=== PATIENT | female | born 1990 | race American Indian/Alaskan Native ===

== ENCOUNTER 2018-05-12 22:32 | Emergency (ER) | payer SELFPAY ==
--- NOTE | 2018-05-13 00:41 | XRay Report ---
FINAL REPORT EXAM: XR NECK SOFT TISSUE HISTORY: Foreign body in throat. Patient stated that she feels like an apple core x1 week ago is st uck in her throat. SALMA TECHNIQUE: AP and lateral views of the neck with soft tissue detail. PRIORS: None. FINDINGS: There is no soft tissue swelling. There is a small prevertebral calcific opacity in the area of the p iriform sinuses most likely calcification in the arytenoid cartilage. There is no strong evidence of foreign body. The airway appears normal. The visualized bones of the skull, face and cervical spine a ppear normal. IMPRESSION: No evidence of foreign body. Consider further evaluation with barium swallow and esophagram
[2018-05-13] MEDS ORDERED: MOTRIN PO ONE (01:21)
[2018-05-13] MEDS ORDERED: LIDOCAINE VISCOUS 2% PO ONE (01:21)
--- NOTE | 2018-05-13 01:28 | Emergency Department Report ---
- General Chief complaint: Skin/Abscess/Foreign Body Stated complaint: THROAT CLOGGED Time Seen by Provider: 05/13/18 01:19 Source: patient, family Mode of arrival: Ambulatory Limitations: No Limitations - History of Present Illness Initial comments: 27-year-old -[place] female presents to the emergency room for complaint of something being stuck in her throat. Patient reports that last week she had eaten a taco and an apple fills out the course of the apple has gotten stuck in her throat. Patient reports that she did go to [facility] where they will prescribe her entire acid medication she reports that it helped with her acid reflux but still feels there is something stuck in her throat. Patient reports that the pain is sharp and worse with swallowing and talking. Patient denies any fever or chills no nausea no vomiting. MD complaint: foreign body -: week(s) (1) Severity: severe Severity scale (0 -10): 10 Quality: sharp Consistency: constant Improves with: none Worsens with: other (swallowing, talking) Associated symptoms: other (swallowing and apple) Treatments Prior to Arrival: other (anacids) - Related Data Allergies Allergy/AdvReac Type Severity Reaction Status Date / Time No Known Allergies Allergy Unverified 05/12/18 22:34 Abscess Boil HPI - HPI Chief Complaint: Skin/Abscess/Foreign Body Stated Complaint: THROAT CLOGGED Time Seen by Provider: 05/13/18 01:19 Allergies/Adverse Reactions: Allergies Allergy/AdvReac Type Severity Reaction Status Date / Time No Known Allergies Allergy Unverified 05/12/18 22:34 ED Review of Systems ROS: Stated complaint: THROAT CLOGGED Other details as noted in HPI Comment: All other systems reviewed and negative ENT: throat pain ED Past Medical Hx - Past Medical History Hx GERD: Yes - Surgical History Past Surgical History?: No - Social History Smoking Status: Never Smoker Substance Use Type: None ED Physical Exam - General Limitations: No Limitations General appearance: alert, other (tearful) - Head Head exam: Present: atraumatic, normocephalic - Eye Eye exam: Present: PERRL, EOMI - ENT ENT exam: Present: mucous membranes moist - Expanded ENT Exam Expanded Mouth exam: Present: tongue normal. Absent: drooling, trismus, muffled voice Throat exam: Negative: tonsillar erythema, tonsillomegaly, tonsillar exudate - Neck Neck exam: Present: tenderness, full ROM. Absent: lymphadenopathy - Respiratory Respiratory exam: Present: normal lung sounds bilaterally. Absent: respiratory distress - Cardiovascular Cardiovascular Exam: Present: regular rate, normal rhythm. Absent: systolic murmur, diastolic murmur, rubs, gallop ED Course Vital Signs 05/12/18 05/12/18 22:40 23:04 Temperature 98.9 F 98.9 F Pulse Rate 75 77 Respiratory 18 18 Rate Blood Pressure 125/78 125/78 O2 Sat by Pulse 100 100 Oximetry ED Medical Decision Making - Radiology Data Radiology results: report reviewed Patient: KATIE GAITAN MR#: [id number] : 1990 Acct:[id number] Age/Sex: 27 / F ADM Date: 05/12/18 Loc: ED Attending Dr: Ordering Physician: ED MD CHRISTOS Date of Service: 05/12/18 Procedure(s): XR neck soft tissue Accession Number(s): [id number] cc: ED MD CHRISTOS Fluoro Time In Minutes: FINAL REPORT EXAM: XR NECK SOFT TISSUE HISTORY: Foreign body in throat. Patient stated that she feels like an apple core x1 week ago is stuck in her throat. SALMA TECHNIQUE: AP and lateral views of the neck with soft tissue detail. PRIORS: None. FINDINGS: There is no soft tissue swelling. There is a small prevertebral calcific opacity in the area of the piriform sinuses most likely calcification in the arytenoid cartilage. There is no strong evidence of foreign body. The airway appears normal. The visualized bones of the skull, face and cervical spine appear normal. IMPRESSION: No evidence of foreign body. Consider further evaluation with barium swallow and esophagram Transcribed By: MLG Dictated By: MARTA BOND MD Electronically Authenticated By: MARTA BOND MD Signed Date/Time: 05/13/1840 CT of neck soft tissue shows no foreign body. DD/ TD/TT: 05/13/1839 - Medical Decision Making Patient has been evaluated by this provider in fast track. Patient was given viscous lidocaine in liquid ibuprofen. CT of neck soft tissue and x-ray of neck are both negative for foreign body. We'll refer patient to GI. Recommend patient to take liquid ibuprofen. Critical care attestation.: If time is entered above; I have spent that time in minutes in the direct care of this critically ill patient, excluding procedure time. ED Disposition Clinical Impression: Sensation of foreign body in esophagus Disposition: DC- TO HOME OR SELFCARE Is pt being admited?: No Does the pt Need Aspirin: No Condition: Stable Additional Instructions: CT scan of neck shows no foreign body plain film of the neck shows no foreign body. Please follow up with city attorney I have listed their information below for your convenience. You can take liquid Tylenol or liquid ibuprofen to help with her pain. Referrals: [facility] [Provider Group] - 3-5 Days Forms: Work/School Release Form(ED), Accompanied Note
--- NOTE | 2018-05-13 02:32 | Cat Scan Report ---
FINAL REPORT PROCEDURE: CT NECK WO CON TECHNIQUE: Computerized tomography of the soft tissue neck was performed without contrast material. This study is performed without intravascular contrast material and its sensitivity for pathology, in cluding neoplasms, inflammation, abscess, free fluid, thrombosis, and arterial dissection, is reduced compared with a contrast enhanced study. HISTORY: possible foreign body in throat COMPARISON: No prior studies are available for comparison. FINDINGS: Skull base: Visualized portions are normal. Paranasal sinuses: Visualized portions are normal. Nasopharynx: Normal. Oral cavity: Normal. Epiglottis/vallecula: Normal. Larynx/pyriform sinuses: Normal. Thyroid gland: Normal. Lymph nodes: None enlarged. Salivary glands: Normal. Upper thorax: Normal. IMPRESSION: No foreign bodies are identified.
[2018-05-13 02:57] VITALS: BP 107/65
== END 2018-05-13 03:00 | disposition home or self-care (01) ==
LOC: ED 22:32
DX: T18.128A Food in esophagus causing other injury, initial encounter (principal); R13.10 Dysphagia, unspecified; K21.9 Gastro-esophageal reflux disease without esophagitis; X58.XXXA Exposure to other specified factors, initial encounter; Y93.89 Activity, other specified; Y92.89 Other specified places as the place of occurrence of the external cause; Y99.8 Other external cause status
CPT/HCPCS: 70360; 70490